=== PATIENT | male | born 1990 | race Caucasian/White ===

== ENCOUNTER 2018-05-02 03:09 | Emergency (ER) | payer BC ==
[~2018-05-02] VITALS: Ht 175.3 cm; Wt 80.0 kg
[2018-05-02 03:23] VITALS: Ht 175.3 cm; Wt 80.0 kg
[2018-05-02] MEDS ORDERED: SODIUM CHLORIDE 0.9% 1000ML 1,000 ML IV STA (03:35)
[2018-05-02 04:12] LABS: BASO % 0.2 %; BASO ABS # 0.01 K/uL (0-0.2); EOS % 1.7 %; EOS ABS # 0.11 K/uL (0-0.5); HEMOGLOBIN 14.2 g/dL (14.0-18.0); IG# 0.01 K/uL (0.00-0.02); LYMPH % 29.7 %; LYMPH ABS # 1.95 K/uL (1.2-3.4); MEAN CELL VOLUME 89.3 fL (80-100); MEAN CORPUSCULAR HEMOGLOBIN 31.7 pg (25-34); MEAN CORPUSCULAR HGB CONC 35.5 g/dl (32-36); MEAN PLATELET VOLUME 10.3 fL (7.4-10.4); MONO % 10.1 %; MONO ABS # 0.66 K/uL (0.11-0.59); NEUT % 58.1 %; NEUT ABS # 3.82 K/uL (1.4-6.5); PLATELET COUNT 233 K/uL (130-400); RED CELL DISTRIBUTION WIDTH CV 12.3 % (11.5-14.5); RED CELL DISTRIBUTION WIDTH SD 39.5 fL (36.4-46.3); WHITE BLOOD COUNT 6.56 K/uL (4.8-10.8)
[2018-05-02] MEDS ORDERED: AMPH20TA2 PO (04:18)
[2018-05-02] MEDS ORDERED: TRAZ50TA35 PO (04:18)
[2018-05-02 04:40] LABS: ALBUMIN 3.9 gm/dl (3.4-5.0); CALCIUM 8.7 mg/dl (8.5-10.1); CREATININE 1.19 mg/dl (0.60-1.40); POTASSIUM 3.5 mmol/L (3.5-5.1); TOTAL PROTEIN 7.5 gm/dl (6.4-8.2)
--- NOTE | 2018-05-02 05:58 | EMERGENCY ROOM VISIT NOTE ---
History First contact with patient: 03:15 Chief Complaint: SYNCOPE Stated Complaint: SYNCOPE History of Present Illness The patient is a 27 year old male who presents to the Emergency Room via EMS with complaints of a syncopal episode. The patient takes Adderall and trazodone on a daily basis. He states that he used a new stimulant pre-workout yesterday evening. He went to bed and woke up about 1 hour ago feeling dizzy and shaky. He went to the kitchen to get a sandwich and states that he collapsed and hit his head in the hallway. He believes he may have been out for up to 30 seconds. He states that he then called 911 and collapsed again on the way to the door. He feels better now but does feel slightly shaky. He denies any chest pain or shortness of breath with any of these events. He denies a headache. He denies any history of syncopal events. He denies any alcohol or drug use. Review of Systems A complete 10 point review of systems was reviewed with the patient with pertinent positives and negatives as per history of present illness. All else were negative. Past Medical/Surgical History Medical Problems: (1) No significant active problems Social History Smoking Status: Never Smoker Drug Use: none Current/Historical Medications Scheduled Amphetamine-Dextroamphetamine 20MG (Adderall 20MG), 20 MG PO BID Trazodone Hcl (Trazodone), 50 MG PO HS Physical Exam Vital Signs Date Time Temp Pulse Resp B/P (MAP) Pulse Ox O2 Delivery O2 Flow Rate FiO2 05/02/18 06:21 66 22 113/64 99 05/02/18 04:53 61 18 100 Room Air 05/02/18 04:42 50 05/02/18 04:05 50 05/02/18 03:46 48 18 121/62 100 Room Air 51 109/67 61 113/64 05/02/18 03:23 49 105/65 100 Room Air Physical Exam VITALS: Vitals are noted on the nurse's note and reviewed by myself. Vital signs stable. GENERAL: This is a 27-year-old male, in no acute distress, nondiaphoretic, well- developed well-nourished. SKIN: The skin was without rashes. There is some mild erythema to the left cheek. HEAD: Normocephalic atraumatic. EARS: External auditory canals clear, tympanic membranes pearly moser without erythema or effusion bilaterally. EYES: Pupils equal round and reactive to light and accommodation. Extraocular movements intact. MOUTH: Mucous membranes moist. NECK: Supple without nuchal rigidity. No lymphadenopathy. Cervical spine is nontender. HEART: Regular rate and rhythm without murmurs gallops or rubs. LUNGS: Clear to auscultation bilaterally without wheezes, rales or rhonchi. MUSCULOSKELETAL: Strength 5/5 throughout. NEURO: Patient was alert and oriented to person place and time. No focal neurological deficits. Medical Decision & Procedures ER Provider Diagnostic Interpretation: CT HEAD: No ICH, mass effect, or edema. No skull fracture. CT FACIAL: No evidence of acute fracture of the facial bones. Visualized sinuses and mastoid air cells are clear. Radiologist: Kathy Boogie M.D. Laboratory Results 05/02/18 03:58 Red Blood Count 4.48, Mean Corpuscular Volume 89.3, Mean Corpuscular Hemoglobin 31.7, Mean Corpuscular Hemoglobin Concent 35.5, Mean Platelet Volume 10.3, Neutrophils (%) (Auto) 58.1, Lymphocytes (%) (Auto) 29.7, Monocytes (%) (Auto) 10.1, Eosinophils (%) (Auto) 1.7, Basophils (%) (Auto) 0.2, Neutrophils # (Auto ) 3.82, Lymphocytes # (Auto) 1.95, Monocytes # (Auto) 0.66, Eosinophils # (Auto ) 0.11, Basophils # (Auto) 0.01 05/02/18 03:58 Test 05/02/18 03:58 White Blood Count 6.56 K/uL (4.8-10.8) Red Blood Count 4.48 M/uL (4.7-6.1) Hemoglobin 14.2 g/dL (14.0-18.0) Hematocrit 40.0 % (42-52) Mean Corpuscular Volume 89.3 fL (80-100) Mean Corpuscular Hemoglobin 31.7 pg (25-34) Mean Corpuscular Hemoglobin Concent 35.5 g/dl (32-36) Platelet Count 233 K/uL (130-400) Mean Platelet Volume 10.3 fL (7.4-10.4) Neutrophils (%) (Auto) 58.1 % Lymphocytes (%) (Auto) 29.7 % Monocytes (%) (Auto) 10.1 % Eosinophils (%) (Auto) 1.7 % Basophils (%) (Auto) 0.2 % Neutrophils # (Auto) 3.82 K/uL (1.4-6.5) Lymphocytes # (Auto) 1.95 K/uL (1.2-3.4) Monocytes # (Auto) 0.66 K/uL (0.11-0.59) Eosinophils # (Auto) 0.11 K/uL (0-0.5) Basophils # (Auto) 0.01 K/uL (0-0.2) RDW Standard Deviation 39.5 fL (36.4-46.3) RDW Coefficient of Variation 12.3 % (11.5-14.5) Immature Granulocyte % (Auto) 0.2 % Immature Granulocyte # (Auto) 0.01 K/uL (0.00-0.02) Anion Gap 8.0 mmol/L (3-11) Est Creatinine Clear Calc Drug Dose 94.1 ml/min Estimated GFR () 97.1 Estimated GFR (Non- 83.8 BUN/Creatinine Ratio 19.9 (10-20) Calcium Level 8.7 mg/dl (8.5-10.1) Total Bilirubin 0.8 mg/dl (0.2-1) Aspartate Amino Transf (AST/SGOT) 24 U/L (15-37) Alanine Aminotransferase (ALT/SGPT) 23 U/L (12-78) Alkaline Phosphatase 80 U/L (45-117) Total Protein 7.5 gm/dl (6.4-8.2) Albumin 3.9 gm/dl (3.4-5.0) Globulin 3.6 gm/dl (2.5-4.0) Albumin/Globulin Ratio 1.1 (0.9-2) Thyroid Stimulating Hormone (TSH) 4.620 uIu/ml (0.300-4.500) Medications Administered Medications (Trade) Dose Ordered Sig/Hai Route Start Time Stop Time Status Last Admin Dose Admin Sodium Chloride 1,000 ml @ 999 mls/hr Q1H1M STAT IV 05/02/18 03:35 05/02/18 04:35 DC 05/02/18 04:03 999 MLS/HR ECG Per My Interpretation Indication: syncope Rate (beats per minute): 50 Rhythm: sinus bradycardia Findings: RBBB (incomplete), no acute ischemic change, no ectopy Comparison ECG Date: no prior available Medical Decision Differential diagnosis includes vasovagal syncope, dehydration, medication reaction, cardiac syncope, among others. The patient is a 27-year-old male who presents today complaining of a syncopal episode. Labs revealed no leukocytosis, anemia or concerning electrolyte abnormalities. EKG shows a normal sinus rhythm without any acute findings. Patient is well-appearing here. He feels slightly shaky. He was given 1 L fluids with significant improvement. I feel this is likely due to a reaction between the new stimulant pre-workout he was taking in his regular medications. He was advised not to use this in the future. I instructed him to follow-up with his PCP this week. The patient's case was reviewed with Dr. Mcmahon, ED attending physician, who agreed with my assessment and treatment plan. Based on the patient's presentation and work up, I feel the patient is stable for outpatient treatment. The patient was educated to return to the emergency department for any worsening of their current condition or new/concerning symptoms. He will follow up with his PCP. Medication Reconcilliation Current Medication List: was personally reviewed by me Blood Pressure Screening Patient's blood pressure: Normal blood pressure Impression Primary Impression: Syncope Departure Information Dispostion Home / Self-Care Condition GOOD Referrals No Doctor, Assigned (PCP) Patient Instructions My [facility] [employer] Additional Instructions Make sure to rest today and drink plenty of fluids. Do not use anymore of the preworkout that you took tonight. Follow-up with your primary care provider this week for a recheck. Return to the emergency department with any worsening or new/concerning symptoms or any recurrent episodes of passing out.
[2018-05-02 06:21] VITALS: BP 113/64; PULSE 66; O2SAT 99
--- NOTE | 2018-05-02 08:37 | DIAGNOSTIC IMAGING REPORT ---
CT FACIAL BONES-MXILLOFAC WITHOUT CT DOSE: 1125.96 mGy.cm CLINICAL HISTORY: Facial pain status post trauma COMPARISON STUDY: No previous studies for comparison. TECHNIQUE: Helical images were acquired in the transverse plane. The study was reviewed and analyzed on the independent 3-D workstation. A dose lowering technique was utilized adhering to the principles of ALARA. The pterygoid plates appear intact. The zygomatic arches appear intact. The globes appear intact. There is no evidence of orbital emphysema. The orbital berry and floor appear intact. The mandibular condyles appear intact. IMPRESSION: No facial fractures identified. Electronically signed by: Vijay Harris M.D. 05/02/2018 8:36 AM Dictated Date/Time: 05/02/2018 8:35 AM
--- NOTE | 2018-05-02 08:42 | DIAGNOSTIC IMAGING REPORT ---
CT HEAD WITHOUT CONTRAST (CT) CLINICAL HISTORY: Head pain status post trauma COMPARISON STUDY: No previous studies for comparison. TECHNIQUE: Axial CT of the brain is performed from the vertex to the skull base. IV contrast was not administered for this examination. A dose lowering technique was utilized adhering to the principles of ALARA. CT DOSE: FINDINGS: No intra or extra-axial mass lesions are visualized. There is no CT evidence of acute cortical infarction. There is no evidence of midline shift. There is no acute hemorrhage. No calvarial fractures are visualized. A focal hypodensity within the left parietal region likely represents partial volume averaging with a cortical sulcus. There is a faintly calcific scalp lesions likely represent sebaceous cysts. There is no evidence of pathologic ventricular dilatation. There is no evidence of acute sinusitis IMPRESSION: No acute intracranial findings Electronically signed by: Vijay Harris M.D. 05/02/2018 8:41 AM Dictated Date/Time: 05/02/2018 8:33 AM
== END 2018-05-02 06:22 | disposition home or self-care (01) ==
LOC: C.EDB 03:11
DX: R55 Syncope and collapse (principal)